=== PATIENT | male | born 1945 | race Caucasian/White ===

== ENCOUNTER 2019-02-22 12:38 | Emergency (ER) | payer OTHER ==
[2019-02-22 12:45] VITALS: BMI 24.2
[2019-02-22] MEDS ORDERED: ACETAMINOPHEN 325 MG TABLET (FP) PO ONE (13:36)
--- NOTE | 2019-02-22 13:46 | PDOC ---
History of Present Illness - General Chief Complaint: Back Pain Stated Complaint: LOWER BACK PAIN Time Seen by Provider: 02/22/19 13:18 History Source: Patient, Family Exam Limitations: No Limitations - History of Present Illness Initial Comments: 02/22/19 13:41 HPI 73 YOM with no significant medical or surgical history presenting with lower lumbar back pain since last night. this morning he woke up with significant lower back pain, worse with movement. associated with pins and needles in bilateral lower extremities. similar episode of back pain 1-2 years ago, self resolved. no trauma or falls. no strenuous or exertional activity. Denies fever, chills, chest pain, SOB, palpitation, dizziness, weakness, N, V, D , abdominal pain, bladder and bowel problems, urinary retention/incontinence, leg swelling, No new changes in medications. no pain meds taken [employer]. Allergies: None Past Medical History: as documented in EMR/HPI Social history: Lives with family. No tobacco, ETOH or drug use. Surgical history: none Meds: as documented in EMR PMD: 02/22/19 13:45 Past History - Past Medical History Allergies/Adverse Reactions: Allergies Allergy/AdvReac Type Severity Reaction Status Date / Time No Known Allergies Allergy Verified 02/22/19 12:45 Home Medications: Ambulatory Orders Cyclobenzaprine HCl [Flexeril 10 mg] 10 mg PO TID PRN #15 tablet 02/22/19 Lidocaine 5% Patch [Lidoderm Patch -] 1 patch TP DAILY PRN #7 patch 02/22/19 COPD: No - Suicide/Smoking/Psychosocial Hx Smoking History: Never smoked Review of Systems - Review of Systems Able to Perform ROS?: Yes Comments:: 02/22/19 13:45 Review of systems Constitutional: no fevers or chills. HEENT: no headache or dizziness. No congestion. No visual/hearing disturbances. CVS: no cp or syncope. Resp: no sob. No cough. Gastrointestinal: no abdominal pain, nausea or vomiting. Genitourinary: no urinary sx, hematuria. MUSCULOSKELETAL: No joint pain and swelling. No neck pain. +back pain SKIN: no redness or skin changes, no discharge, no rash. No wounds. Hematologic: no easy bruising/bleeding. NEUROLOGIC: No headache, dizziness, LOC or altered mental status. No weakness, numbness. +bilateral LE tingling. Psych: no anxiety or depression Allergic/Immunologic: no allergies All other systems reviewed and negative, or as documented in HPI. *Physical Exam - Vital Signs Last Vital Signs Temp Pulse Resp BP Pulse Ox 97.8 F 63 18 163/74 97 02/22/19 12:41 02/22/19 12:41 02/22/19 12:41 02/22/19 12:41 02/22/19 12:41 - Physical Exam Comments: 02/22/19 13:46 General: Well appearing, awake and alert, NAD. HEENT: NCAT, PERRL, EOMI, clear conjunctiva, anicteric, moist mucus membranes, clear oropharynx, no oral lesions.. Neck: neck supple, FROM Resp: CTAB, normal and even respirations, no respiratory distress CVS: RRR, no murmurs, 2+ peripheral pulses throughout, no peripheral edema Abdomen: soft, NTND, no peritoneal signs. no CVAT Back: nontender, normal inspection and ROM MSK: no edema, HARMAN x4, ROM intact. No clubbing or cyanosis. normal bulk and tone. Neuro: alert, no focal neuro deficits. Psych: calm and cooperative Skin: warm and well perfused, cap refill <2 sec, normal color ED Treatment Course - LABORATORY CBC & Chemistry Diagram: 02/22/19 14:03 02/22/19 14:03 - RADIOLOGY Radiology Studies Ordered: Category Date Time Status ABDOMEN & PELVIS CT WITH CONTR [CT] Stat CT Scan 02/22/19 13:[address] W/O CONTRAST [CT] Stat CT Scan 02/22/19 13:36 Ordered Medical Decision Making - Medical Decision Making 02/22/19 13:46 See HPI for details. Prior notes reviewed, including admissions, discharges and consultations. Vital signs reviewed, wnl. DDx back pain: back strain, lumbago, sciatica, radiculopathy, spinal stenosis. Muscle spasm. Lumbar radiculopathy. renal colic, renal dissection, AAA, RP bleed. Clinically doubt based on exam and clinical history: cord compression or cauda equina, with low suspicion and NO red flag sx such malignancy, weight loss, trauma, fevers, IVDU, lumbar/spinal procedures, bowel and bladder incontinence/ retention, urinary sx, neurologic deficits or changes. laboratory results and imaging reviewed, basic labs and lytes wnl, notable for LFTs nl UA_neg for blood/infection EKG normal sinus rhythm, no interval abnormalities, narrow QRS, ST and T wave segments and morphology normal. Nonspecific T wave abnormalities ED course -interventions: IVF, analgesia - CT L spine to eval for trauma/bony degenerative disease given acute sx. CT a/p neg for acute pathology, no abdominal infection/inflammation or mass, no vascular abnormality Pt to be discharged in stable condition. Patient and family made aware of clinical impression, treatment recommendations and disposition plan, return precautions discussed (including but not limited to new or persistent/worsening symptoms, pain, fevers, or signs of infection, chest pain, respiratory distress , inability to tolerate oral intake, dehydration, syncope, or neurologic changes ). Follow up with PMD and/or specialist as recommended, follow up information provided, take medications as instructed for duration of time. continue with supportive care, avoid triggers and precipitants. All questions answered to patient's satisfaction and expressed understanding and comfort with this. At the time of discharge, the patient is alert, clinically improved, tolerating po and verbalizes understanding of instructions, satisfied with the care received and felt comfortable with the plan. Patient does not suffer from an acute life- threatening medical condition at this time and is safe for outpatient follow- up. 02/22/19 13:47 02/22/19 15:24 02/22/19 17:10 02/22/19 17:11 *DC/Admit/Observation/Transfer Diagnosis at time of Disposition: Back pain - Discharge Dispostion Disposition: HOME Condition at time of disposition: Good Decision to Admit order: No - Prescriptions Prescriptions: Cyclobenzaprine HCl [Flexeril 10 mg] 10 mg PO TID PRN #15 tablet PRN Reason: Muscle Spasms Lidocaine 5% Patch [Lidoderm Patch -] 1 patch TP DAILY PRN #7 patch PRN Reason: Pain - Referrals Referrals: Lamine Hollingsworth MD [Staff Physician] - Robert Coyne MD, FAANS [Staff Physician] - - Patient Instructions Printed Discharge Instructions: DI for Low Back Pain Additional Instructions: 1) Please follow-up with your primary care doctor in the next 1-2 days. Please call tomorrow for for any urgent issues. 2) You were given a copy of the tests performed today. Please bring the results with you and review them with your primary care doctor. Your laboratory / imaging results were normal, including your CT scans of your abdomen and pelvis and lower back. 3) If you have any worsening of symptoms or any other concerns please return to the ED immediately. Return if worsening symptoms including fevers, headache, vomiting, visual or hearing disturbances, abdominal pain, chest pain, shortness of breath, syncope, dehydration, inability to take things by mouth/vomiting, altered mental status, or worsening concerning symptoms. 4) Please continue taking your home medications as directed. your medications on discharge include . side effects may include upset stomach, abdominal pain, vomiting, or diarrhea. do not drink alcohol with your medications. you most likely have musculoskeletal strain of your lower back avoid heavy lifting or strenuous activity to minimize further injury flexeril is a muscle relaxant, take three times a day as needed may cause sleepiness, do not drive or operate machinery or take with alcohol. topical lidoderm patch to the area affected, 12 hours on and 12 hours off.. May take ibuprofen 400-600mg and/or tylenol 650 to 975 mg every 6 hours as needed for mild to moderate pain, available over the counter. This does not require narcotics, as it will precipitate injuries and falls. continue with range of motion exercises, as this will facilitate the healing process; avoid being bed bound and immobile. 1) Fernando el seguimiento con shanks mdico de atencin primaria en los prximos 1 o 2 bey. Por favor llame maana para cualquier problema urgente. 2) Le dieron rach copia de las pruebas realizadas hoy. Lleve los resultados con usted y revselos con shanks mdico de atencin primaria. Los resultados de shanks laboratorio / imgenes fueron normales, incluidas las tomografas computarizadas de shanks abdomen y pelvis y la parte inferior de la espalda. 3) Si tiene algn empeoramiento de los sntomas o alguna otra inquietud, vuelva a la ED de inmediato. Regrese si los sntomas empeoran, incluyendo fiebre, dolor de angus, vmitos, trastornos visuales o auditivos, dolor abdominal, dolor de pecho, falta de aliento, sncope, deshidratacin, incapacidad para dixon cosas por la boca / vmitos, alteracin del estado mental o empeoramiento de los sntomas. 4) Por favor contine tomando pratima medicamentos caseros segn las indicaciones. Pratima medicamentos en el momento del wilfredo incluyen. los efectos secundarios pueden incluir malestar estomacal, dolor abdominal, vmitos o diarrea. No tome alcohol con pratima medicamentos. lo ms probable es que tenga rach tensin musculoesqueltica en la parte baja de la espalda evite levantar objetos pesados ??o realizar actividades extenuantes para minimizar lesiones adicionales flexeril es un relajante muscular, dixon fausto veces al da segn sea necesario puede causar somnolencia, no conduzca ni opere maquinaria ni tome alcohol. parche de lidoderm tpico en el sasha afectada, 12 horas y 12 horas de descanso. Puede dixon ibuprofeno 400-600mg y / o tylenol 650 a 975 mg cada 6 horas segn sea necesario para el dolor leve a moderado, disponible sin receta. [place] no requiere narcticos, ya que precipitar lesiones y cadas. contine con los ejercicios de rango de movimiento, ya que esto facilitar el proceso de curacin; Renee estar en cama e inmvil. - Post Discharge Activity
[2019-02-22] MEDS ORDERED: SODIUM CHLORIDE 0.9% 500 ML INFUS.BAG IV ONE (13:47)
[2019-02-22] MEDS ORDERED: ACETAMINOPHEN 325 MG TABLET (FP) ONE (13:56)
[2019-02-22 14:31] LABS: PH,URINE 5.5 (5.0-8.0); URINE APPEARANCE CLEAR; URINE BILIRUBIN NEGATIVE (NEGATIVE); URINE COLOR YELLOW; URINE GLUCOSE (UA) NEGATIVE (NEGATIVE); URINE KETONE NEGATIVE (NEGATIVE); URINE LEUK ESTERASE NEGATIVE (NEGATIVE); URINE NITRITE NEGATIVE (NEGATIVE); URINE PROTEIN NEGATIVE (NEGATIVE); URINE UROBILINOGEN 0.2 mg/dL (0.2-1.0)
[2019-02-22 14:34] LABS: BASO % 0.4 % (0-2.0); EOS % 0.4 % (0-4.5); HEMATOCRIT 43.6 % (35.4-49); HEMOGLOBIN 14.9 GM/dL (11.7-16.9); LYMPH % 21.3 % (8-40); MCH 29.6 pg (25.7-33.7); MCHC 34.2 g/dl (32.0-35.9); MEAN CELL VOLUME 86.4 fl (80-96); MEAN PLT VOLUME 8.8 fl (7.5-11.1); MONO % 7.5 % (3.8-10.2); NEUT % 70.4 % (42.8-82.8); PLATELET COUNT 272 K/MM3 (134-434); RBC 5.05 M/mm3 (4.00-5.60); RDW 14.3 % (11.9-15.9); WHITE BLOOD COUNT 7.2 K/mm3 (4.0-10.0)
[2019-02-22 14:48] LABS: ALBUMIN 4.1 g/dl (3.4-5.0); BILIRUBIN,TOTAL 0.3 mg/dL (0.2-1); BLOOD UREA NITROGEN 11.3 mg/dL (7-18); CALCIUM 9.1 mg/dL (8.5-10.1); POTASSIUM 4.1 mmol/L (3.5-5.1)
[2019-02-22 14:49] LABS: CREATININE 0.8 mg/dL (0.55-1.3)
[2019-02-22] MEDS ORDERED: CYCLOBENZAPRINE HCL 5 MG TABLET PO ONE (17:17)
[2019-02-22] MEDS ORDERED: LIDOCAINE 5% TOPICAL PATCH TP ONE (17:17)
[2019-02-22] MEDS ORDERED: LIDOCAINE 5% TOPICAL PATCH ONE (17:28)
[2019-02-22] MEDS ORDERED: CYCLOBENZAPRINE HCL 10 MG TABLET (FP) ONE (17:28)
[2019-02-22 19:29] VITALS: BP 129/74; PULSE 69; TEMP 97.9
== END 2019-02-22 19:26 | disposition home or self-care (01) ==
LOC: JER 12:38
PROC: 3E0337Z Introduction of Electrolytic and Water Balance Substance into Peripheral Vein, Percutaneous Approach (ICD-10-PCS; principal; 2019-02-22)
DX: M54.9 Dorsalgia, unspecified (principal)
CPT/HCPCS: 36415; 72131-TC; 74177-TC; 80053; 81003; 85025; 96360; 99283-25

== ENCOUNTER 2019-04-03 10:09 | Emergency (ER) | payer OTHER ==
[2019-04-03 10:27] VITALS: BMI 24.2
--- NOTE | 2019-04-03 11:08 | PDOC ---
History of Present Illness - General Chief Complaint: Pain, Acute Stated Complaint: LT. SHOULDER PAIN Time Seen by Provider: 04/03/19 11:07 Past History - Past Medical History Allergies/Adverse Reactions: Allergies Allergy/AdvReac Type Severity Reaction Status Date / Time No Known Allergies Allergy Verified 04/03/19 10:22 Home Medications: Ambulatory Orders Cyclobenzaprine HCl [Flexeril 10 mg] 10 mg PO TID PRN #15 tablet 02/22/19 Lidocaine 5% Patch [Lidoderm Patch -] 1 patch TP DAILY PRN #7 patch 02/22/19 Lidocaine 5% Patch [Lidoderm -] 1 patch TP DAILY #7 patch 04/03/19 Naproxen [Naprosyn] 500 mg PO BID #15 tablet 04/03/19 COPD: No - Immunization History Immunization Up to Date: Yes - Suicide/Smoking/Psychosocial Hx Smoking History: Never smoked Information on smoking cessation initiated: No Hx Alcohol Use: No Drug/Substance Use Hx: No *Physical Exam - Vital Signs Last Vital Signs Temp Pulse Resp BP Pulse Ox 98.2 F 83 17 142/89 98 04/03/19 10:24 04/03/19 10:24 04/03/19 10:24 04/03/19 10:24 04/03/19 10:24 Medical Decision Making - Medical Decision Making 73yo M with PMH of HTN presenting with left shoulder pain x 3 days. The pain is most focal to the posterior shoulder but is also present "poquito" in the front. Rated 10/10 upon movement of the left arm. Never had injury to this area before. Denies recent trauma or significant exertional activity. Took two tablets of motrin yesterday with some relief of pain. Patient presents today because he still has pain. No fevers,chills, chest pain, or shortness of breath. PCP: he had an annual physical in the past month but does not recall his doctor' s name ROS: Constitutional: no fever, no chills HEENT: no throat pain, no dysphagia Cardiovascular: no chest pain, no palpitations Respiratory: no cough, no shortness of breath Gastrointestinal: no abdominal pain, no nausea Genitourinary: no dysuria, no hematuria Musculoskeletal: +L. shoulder pain, no R. shoulder pain Skin: no rash, no itching Neurologic: no headache, no weakness PE: General: Awake, alert, and fully oriented, in no acute distress Head: No signs of trauma Eyes: EOMI, sclera anicteric ENT: Moist mucus membranes Neck: Normal ROM, supple Lungs: Lungs clear, Normal breath sounds Cardio: Regular rhythm, S1 and S2 present, Systolic murmur present Abdomen: Soft, nontender Extremities: Normal range of motion, Distal pulses present R. shoulder: no abnormality L. shoulder: Pain most focal to posterior shoulder upon passive/active motion; no crepitus, no deformity; no overlying rash or lesion; full range of motion SKIN: Warm, Dry, normal turgor Neurologic: Cranial nerves II through XII grossly intact. Normal speech ED Courses/MDM: DDX including but not limited to MSK, dislocation, fracture, gout, osteoarthritis, ACS 30mg toradol Lidocaine patch Radiographs of the left shoulder Triage note appreciated. EKG ordered. Patient without complaints of chest pain. Exam consistent with musculoskeletal etiology. I have a low suspicion for ACS. EKG: rate 82, QTc 467, sinus, 1st degree AV block, RBBB, LVH, no prior EKGs in MUSE 04/03/19 11:08 L. shoulder radiograph without acute pathology, my impression Will reassess 04/03/19 12:10 CXR without acute pathology, my impression 04/03/19 12:37 L. shoulder radiograph without acute pathology, as read by radiology: "2 views of the left shoulder reveal no sign of an acute fracture or subluxation and no sign of blastic or lytic changes. There is a healed fracture deformity of the left clavicular shaft. If symptoms persist, further imaging and orthopedic consultation may be of help." 04/03/19 12:43 CXR, as read by radiology: "There are no prior studies for comparison. There are clear lungs, normal mediastinum and sharp angles. The bones and soft tissues are intact. Impresion: No acute chest pathology" 04/03/19 12:49 Patient reporting some alleviation of pain Naprosyn sent to pharmacy Discharged 04/03/19 13:11 *DC/Admit/Observation/Transfer Diagnosis at time of Disposition: Shoulder pain, left Qualifiers: Chronicity: acute Qualified Code(s): M25.512 - Pain in left shoulder - Discharge Dispostion Disposition: HOME Condition at time of disposition: Stable - Prescriptions Prescriptions: Lidocaine 5% Patch [Lidoderm -] 1 patch TP DAILY #7 patch Naproxen [Naprosyn] 500 mg PO BID #15 tablet - Referrals Referrals: Shasha Stein [Primary Care Provider] - - Patient Instructions Printed Discharge Instructions: How To Perform RICE (Rest, Ice, Compress, Elevate), DI for Shoulder Pain Additional Instructions: You came into the ED for left shoulder pain. Xray did not show acute pathology. We gave you medicine which helped improve your pain. Prescription sent to your pharmacy. Take as instructed Follow up with your primary care physician within 72 hours. Call today and make an appointment to further evaluate your shoulder. Your workup is not complete until you do so. Immediate medical attention is required if you experience: any focal numbness or weakness, coldness in your limb, or any new or concerning symptoms. If you think you are having an emergency, call for emergency medical services or present to the emergency department right away. === Llegaste al servicio de urgencias por dolor en el hombro damari. La radiografa no mostr patologa aguda. Le dimos medicamentos que ayudaron a mejorar shanks dolor. Receta enviada a shanks farmacia. Tmelo segn las instrucciones. Fernando un seguimiento con shanks mdico de atencin primaria dentro de las 72 horas. Llame kaydeny y fernando rach rigo para evaluar an ms shanks hombro. Shanks trabajo no est completo hasta que lo fernando. Se requiere atencin mdica inmediata si experimenta: entumecimiento o debilidad focal, frialdad en la extremidad o cualquier sntoma nuevo o preocupante. Si janice que est teniendo rach emergencia, llame a los servicios mdicos de emergencia o presntese de inmediato en el departamento de emergencias. Print Language: YI - Post Discharge Activity
[2019-04-03] MEDS ORDERED: KETOROLAC TROMETHAMINE 30 MG/1 ML VIAL IM ONE (11:49)
[2019-04-03] MEDS ORDERED: KETOROLAC TROMETHAMINE 30 MG/1 ML VIAL ONE (11:52)
[2019-04-03] MEDS ORDERED: LIDOCAINE 5% TOPICAL PATCH TP ONE (11:54)
[2019-04-03] MEDS ORDERED: LIDOCAINE 5% TOPICAL PATCH ONE (12:21)
--- NOTE | 2019-04-03 13:03 | PDOC ---
Documentation entered by Constance Cash SCRIBE, acting as scribe for Carlito Dupree MD. Carlito Dupree MD: This documentation has been prepared by the Shailesh harrison Adrianna, SCRIBE, under my direction and personally reviewed by me in its entirety. I confirm that the documentation accurately reflects all work, treatment, procedures, and medical decision making performed by me. Attending Attestation - Resident Resident Name: Milana Aden - ED Attending Attestation I have performed the following: I have examined & evaluated the patient, The case was reviewed & discussed with the resident, I agree w/resident's findings & plan - HPI HPI: 04/03/19 12:58 73-year-old male presents with 2-3 days of progressive left trapezial pain. Patient was in usual state of good health, does not recall any injury or strain , awoke 2 or 3 days ago with a mild left trapezial discomfort that has since been constant and progressively worsening in severity, worse with neck flexion or body/positional movements, not associated with any chest pain or exertion or shortness of breath. No cough or fevers or chills, no history of recurring pain syndrome or disc disease. No numbness or tingling or motor weakness. - Physicial Exam PE: 04/03/19 12:59 Vital signs normal Patient is well-appearing seated in stretcher No midline spine tenderness, there is focal reproducible tenderness in the left trapezius just medial to the scapula, no swelling or erythema or rash. 5 out of 5 range of motion of the left upper extremity, no rib tenderness, lungs are clear, heart is regular - Medical Decision Making 04/03/19 13:02 73-year-old male with left trapezial strain, musculoskeletal etiology and not consistent with cardiopulmonary etiology. The patient is hemodynamically stable without any respiratory distress. EKG shows right bundle branch block without acute ischemic changes Patient feels significantly improved after medications Neurovascular intact, will discharge with pain regimen, follow up with PCP and understands return criteria. Heart Score/ECG Review #1 ECG reviewed & interpreted by me at: 11:10 General ECG Interpretation: Sinus Rhythm, Normal Rate (78), Normal Intervals ( qtc 451, qrs 132 with RBBB, +LVH), No acute ischemic changes Compared to previous ECG there are: Previous ECG unavail
[2019-04-03 13:13] VITALS: BP 126/81; PULSE 81; TEMP 98.1
--- NOTE | 2019-04-03 15:28 | EKG ---
Test Reason : Blood Pressure : / mmHG Vent. Rate : 084 BPM Atrial Rate : 084 BPM P-R Int : 244 ms QRS Dur : 140 ms QT Int : 400 ms P-R-T Axes : 048 -22 031 degrees QTc Int : 472 ms POOR DATA QUALITY, INTERPRETATION MAY BE ADVERSELY AFFECTED SINUS RHYTHM WITH 1ST DEGREE A-V BLOCK RIGHT BUNDLE BRANCH BLOCK LEFT VENTRICULAR HYPERTROPHY WITH REPOLARIZATION ABNORMALITY CANNOT RULE OUT SEPTAL INFARCT , AGE UNDETERMINED ABNORMAL ECG NO PREVIOUS ECGS AVAILABLE Confirmed by MERLIN LEONARD MD ([id number]) on 04/03/2019 3:27:34 PM Referred By: Confirmed By:MERLIN LEONARD MD
[2019-04-03] MEDS ORDERED: LIDOCAINE PATCH REMOVAL MC SCH (22:00)
== END 2019-04-03 13:13 | disposition home or self-care (01) ==
LOC: JER 10:09
PROC: 3E0233Z Introduction of Anti-inflammatory into Muscle, Percutaneous Approach (ICD-10-PCS; principal; 2019-04-03)
DX: M25.512 Pain in left shoulder (principal); I10 Essential (primary) hypertension
CPT/HCPCS: 71045-TC-FY; 73030-TC-LT-FY; 93005; 93010; 99283-25